=== PATIENT | female | born 1970 | race Hispanic/Latino ===

== ENCOUNTER 2019-08-10 00:48 | Emergency (ER) | payer SELFPAY ==
[2019-08-10 01:33] LABS: Bacteria/HPF 4+ HPF (None Seen); Bilirubin Negative (Negative); Blood, Urine Negative (Negative); Clarity Clear (Clear); Glucose, Urine (Dipstick) Normal (Negative); Leukocyte 75 Leu/uL (Negative); Nitrite 2+ (Negative); Protein, Urine (Dipstick) Negative (Neg-Trace); RBC/HPF 0-3 HPF (0-3); Squamous Epithelial 0-3 HPF (0-3); Urobilinogen Normal mg/dL (Less than 2)
[2019-08-10 01:36] LABS: #Eosinphils 0.5 thou/uL (0.0-0.7); #Lymphocytes 3.2 thou/uL (1.20-3.40); #Monocytes 0.6 thou/uL (0.11-0.59); #Neutrophils 5.2 thou/uL (1.40-6.50); %Basophils 0.3 % (0.0-1.0); %Eosinophils 5.1 % (0.0-10.0); %Monocytes 5.8 % (0.0-10.0); %Neutrophils 54.8 % (42.0-75.0); Hemoglobin 12.9 g/dL (12.0-16.0); Mean Corpuscular HGB CONC 33.6 g/dL (32.0-36.0); Mean Corpuscular Hemoglobin 31.8 pg (27.0-31.0); Mean Corpuscular Volume 94.8 fL (78.0-98.0); Mean Platelet Volume 9.7 fL (7.4-10.4); Platelet Count 202 thou/uL (130-400); RBC Distribution Width 11.3 % (11.5-14.5); Red Blood Cell (RBC) Count 4.05 mill/uL (4.20-5.40); White Blood Cell (WBC) Count 9.4 thou/uL (4.8-10.8)
[2019-08-10 01:54] LABS: ALT (SGPT) 20 U/L (8-55); AST (SGOT) 32 U/L (5-34); Albumin 4.2 g/dL (3.5-5.0); Alkaline Phosphatase 128 U/L (40-110); Anion Gap 12 mmol/L (10-20); BUN (Urea Nitrogen) 8 mg/dL (7.0-18.7); Bilirubin, Total 0.3 mg/dL (0.2-1.2); Calc. Creatinine Clearance 0 mL/min (70-130); Calcium 9.2 mg/dL (7.8-10.44); Carbon Dioxide 28 mmol/L (22-29); Chloride 107 mmol/L (98-107); Estimated GFR-MDRD 85; Globulin 3.5 g/dL (2.4-3.5); Glucose 172 mg/dL (70-105); Potassium 3.5 mmol/L (3.5-5.1); Protein, Total 7.7 g/dL (6.0-8.3); Sodium 143 mmol/L (136-145)
[2019-08-10] MEDS ORDERED: Morphine 10 MG/ML VIAL ONE (02:16)
[2019-08-10] MEDS ORDERED: cefTRIAXone\\ROCEPHIN 1 GM VIAL ONE (02:17)
[2019-08-10] MEDS ORDERED: Ondansetron ODT 8 MG TAB ONE (02:17)
[2019-08-10] MEDS ORDERED: Lidocaine 1% (PF) 30 ML VIAL ONE (02:17)
== END 2019-08-10 02:43 | disposition home or self-care (01) ==
LOC: ERS 00:48
DX: N12 Tubulo-interstitial nephritis, not specified as acute or chronic (principal); G43.909 Migraine, unspecified, not intractable, without status migrainosus
CPT/HCPCS: 36415; 80053; 81003; 81015; 85025; 87077; 87086; 87186; 96372; 99284; J0696; J2001; J2270

== ENCOUNTER 2019-11-13 09:45 | Emergency (ER) | payer SELFPAY ==
[~2019-11-13 09:45] MED LIST: Iopamidol 370 76% 100 ML VIAL ONE
[2019-11-13] MEDS ORDERED: Ketorolac Tromethamine 30 MG/ML VIAL ONE (10:24)
[2019-11-13] MEDS ORDERED: Morphine 4 MG/ML VIAL ONE ×2 (10:24→12:49)
[2019-11-13 10:55] LABS: #Eosinphils 0.4 thou/uL (0.0-0.7); #Lymphocytes 4.4 thou/uL (1.20-3.40); #Monocytes 1.1 thou/uL (0.11-0.59); #Neutrophils 8.3 thou/uL (1.40-6.50); %Basophils 0.3 % (0.0-1.0); %Eosinophils 3.1 % (0.0-10.0); %Monocytes 7.8 % (0.0-10.0); %Neutrophils 57.9 % (42.0-75.0); Hemoglobin 13.7 g/dL (12.0-16.0); Mean Corpuscular HGB CONC 33.5 g/dL (32.0-36.0); Mean Corpuscular Hemoglobin 30.6 pg (27.0-31.0); Mean Corpuscular Volume 91.5 fL (78.0-98.0); Mean Platelet Volume 10.3 fL (7.4-10.4); Platelet Count 190 thou/uL (130-400); RBC Distribution Width 10.8 % (11.5-14.5); Red Blood Cell (RBC) Count 4.46 mill/uL (4.20-5.40); White Blood Cell (WBC) Count 14.3 thou/uL (4.8-10.8)
[2019-11-13 11:06] LABS: ALT (SGPT) 33 U/L (8-55); AST (SGOT) 41 U/L (5-34); Albumin 4.2 g/dL (3.5-5.0); Alkaline Phosphatase 147 U/L (40-110); Anion Gap 16 mmol/L (10-20); BUN (Urea Nitrogen) 6 mg/dL (7.0-18.7); Bilirubin, Total 0.6 mg/dL (0.2-1.2); Calc. Creatinine Clearance 0 mL/min (70-130); Calcium 9.3 mg/dL (7.8-10.44); Carbon Dioxide 25 mmol/L (22-29); Chloride 102 mmol/L (98-107); Estimated GFR-MDRD Greater than 90; Globulin 3.3 g/dL (2.4-3.5); Glucose 178 mg/dL (70-105); Potassium 3.8 mmol/L (3.5-5.1); Protein, Total 7.5 g/dL (6.0-8.3); Sodium 139 mmol/L (136-145)
--- NOTE | 2019-11-13 12:05 | CT ---
CT ORBITS WITH IV CONTRAST: Date: 11/13/2019 HISTORY: Right eye pain and swelling. FINDINGS: There is soft tissue swelling and induration of the fat in the right periorbital region. No loculated fluid collection is seen to suggest abscess formation. No proptosis noted. No retrobulbar mass is id entified. The donovan of the bony orbits are intact bilaterally. The visualized paranasal sinuses and m astoid air cells are well aerated. IMPRESSION: Right periorbital cellulitis. No definite evidence of abscess formation. POS: [facility]
== END 2019-11-13 13:02 | disposition home or self-care (01) ==
LOC: ERS 09:45
DX: L03.213 Periorbital cellulitis (principal)
CPT/HCPCS: 36415; 70481; 80053; 85025; 87040; 96361; 96374; 96375; 96376; J1885; J2270; Q9967

== ENCOUNTER 2019-11-14 18:23 | Emergency (ER) | payer SELFPAY ==
[2019-11-14 19:33] LABS: #Eosinphils 0.3 thou/uL (0.0-0.7); #Lymphocytes 2.6 thou/uL (1.20-3.40); #Neutrophils 9.9 thou/uL (1.40-6.50); %Basophils 0.3 % (0.0-1.0); %Eosinophils 1.9 % (0.0-10.0); %Lymphocytes 18.4 % (21.0-51.0); %Monocytes 7.4 % (0.0-10.0); Mean Corpuscular Hemoglobin 30.7 pg (27.0-31.0); Mean Corpuscular Volume 90.6 fL (78.0-98.0); Mean Platelet Volume 9.7 fL (7.4-10.4); Platelet Count 167 thou/uL (130-400); RBC Distribution Width 10.8 % (11.5-14.5); Red Blood Cell (RBC) Count 4.24 mill/uL (4.20-5.40); White Blood Cell (WBC) Count 13.8 thou/uL (4.8-10.8)
[2019-11-14] MEDS ORDERED: Fentanyl 100 MCG/2 ML VIAL ONE (19:45)
[2019-11-14] MEDS ORDERED: Piperacillin/Tazobactam 3.375 GM VIAL ONE (19:45)
[2019-11-14 19:56] LABS: ALT (SGPT) 28 U/L (8-55); AST (SGOT) 38 U/L (5-34); Albumin 3.8 g/dL (3.5-5.0); Alkaline Phosphatase 136 U/L (40-110); Anion Gap 14 mmol/L (10-20); BUN (Urea Nitrogen) 4 mg/dL (7.0-18.7); Bilirubin, Total 0.6 mg/dL (0.2-1.2); Calc. Creatinine Clearance 0 mL/min (70-130); Calcium 9.1 mg/dL (7.8-10.44); Carbon Dioxide 24 mmol/L (22-29); Chloride 103 mmol/L (98-107); Estimated GFR-MDRD Greater than 90; Globulin 3.7 g/dL (2.4-3.5); Glucose 236 mg/dL (70-105); Potassium 3.6 mmol/L (3.5-5.1); Protein, Total 7.5 g/dL (6.0-8.3); Sodium 137 mmol/L (136-145)
[2019-11-14] MEDS ORDERED: Clindamycin/D5W 300 MG in Premix Bag 1 BAG IVPB ONE (20:00)
[2019-11-14] MEDS ORDERED: diphenhydrAMINE 50 MG/ML VIAL ONE (20:32)
[2019-11-14] MEDS ORDERED: Morphine 4 MG/ML VIAL ONE (21:18)
== END 2019-11-14 21:59 | disposition home or self-care (01) ==
LOC: ERS 18:23
DX: H05.011 Cellulitis of right orbit (principal); G43.909 Migraine, unspecified, not intractable, without status migrainosus
CPT/HCPCS: 36415; 85025; 96365; 96375; J1200; J2270; J2543; J3010; J3490

== ENCOUNTER 2019-11-16 21:49 | Emergency (ER) | payer SELFPAY ==
[2019-11-17] MEDS ORDERED: Lidocaine 1% w/Epinephrine 1:100K 20 ML VIAL ONE (00:18)
== END 2019-11-17 00:50 | disposition home or self-care (01) ==
LOC: ERS 21:49
DX: L03.211 Cellulitis of face (principal); L02.01 Cutaneous abscess of face; G43.909 Migraine, unspecified, not intractable, without status migrainosus; Z79.899 Other long term (current) drug therapy
CPT/HCPCS: 10060

== ENCOUNTER 2020-05-19 22:06 | Emergency (ER) | payer SELFPAY ==
[2020-05-19] MEDS ORDERED: Lidocaine 1% (PF) 30 ML VIAL ONE (23:00)
[2020-05-19] MEDS ORDERED: traMADol HCl 50 MG TAB ONE (23:06)
== END 2020-05-19 23:45 | disposition home or self-care (01) ==
LOC: ERS 22:06
DX: H60.01 Abscess of right external ear (principal); G43.909 Migraine, unspecified, not intractable, without status migrainosus
CPT/HCPCS: 69000; J2001

== ENCOUNTER 2020-06-28 17:43 | Emergency (ER) | payer SELFPAY ==
[2020-06-28 19:07] LABS: Bilirubin Negative (Negative); Blood, Urine Negative (Negative); Clarity Clear (Clear); Glucose, Urine (Dipstick) Normal (Negative); Ketone, Urine Negative (Negative); Leukocyte 75 Leu/uL (Negative); Nitrite Negative (Negative); Protein, Urine (Dipstick) Negative (Neg-Trace); RBC/HPF 0-3 HPF (0-3); Squamous Epithelial 0-3 HPF (0-3); Urobilinogen Normal mg/dL (Less than 2)
[2020-06-28 19:12] LABS: Specific Gravity, Urine 1.005 (1.002-1.036)
[2020-06-28 19:13] LABS: Bacteria/HPF 1+ HPF (None Seen)
== END 2020-06-28 19:59 | disposition home or self-care (01) ==
LOC: ERS 17:43
DX: N39.0 Urinary tract infection, site not specified (principal); G43.909 Migraine, unspecified, not intractable, without status migrainosus; Z85.43 Personal history of malignant neoplasm of ovary; Z85.41 Personal history of malignant neoplasm of cervix uteri
CPT/HCPCS: 81003; 81015; 87086; 99283

== ENCOUNTER 2021-03-20 23:53 | Emergency (ER) | payer SELFPAY ==
[2021-03-21 00:21] LABS: Bacteria/HPF 2+ HPF (None Seen); Bilirubin Negative (Negative); Blood, Urine Trace (Negative); Clarity Turbid (Clear); Glucose, Urine (Dipstick) Normal (Negative); Ketone, Urine Negative (Negative); Leukocyte 500 Leu/uL (Negative); Nitrite 2+ (Negative); Protein, Urine (Dipstick) Negative (Neg-Trace); Specific Gravity, Urine 1.008 (1.002-1.036); Squamous Epithelial 0-3 HPF (0-3); Urobilinogen Normal mg/dL (Less than 2); WBC/HPF Greater than 50 HPF (0-3)
== END 2021-03-21 00:40 | disposition home or self-care (01) ==
LOC: ERS 23:53
DX: N39.0 Urinary tract infection, site not specified (principal); G43.909 Migraine, unspecified, not intractable, without status migrainosus
CPT/HCPCS: 81003; 81015; 99284

== ENCOUNTER 2023-05-28 15:43 | Emergency (ER) | payer BC, SELFPAY ==
[2023-05-28 17:09] LABS: Bacteria/HPF 2+ HPF (None Seen); Bilirubin Negative (Negative); Blood, Urine Negative (Negative); CAUTI Indications for Culture Dysuria,urgency,freq; Clarity Clear (Clear); Glucose, Urine (Dipstick) Normal (Negative); Ketone, Urine Negative (Negative); Leukocyte 250 Leu/uL (Negative); Nitrite Negative (Negative); Protein, Urine (Dipstick) Negative (Neg-Trace); RBC/HPF 0-3 HPF (0-3); Specific Gravity, Urine 1.005 (1.002-1.036); Squamous Epithelial 0-3 HPF (0-3); Urobilinogen Normal mg/dL (Less than 2)
[2023-05-28 17:10] LABS: Pregnancy Test - Urine (BHCG) Negative (Negative); Pregu Control Background? CLEAR/WHITE (CLR/WHITE); Pregu Control Bar Appear? YES (CONTROL BAR); Specific Gravity 1.005 (1.002-1.036)
[2023-05-28 17:12] LABS: Urine Culture Reflex Yes Yes
[2023-05-28] MEDS ORDERED: Cephalexin 250 MG CAP ONE (17:26)
== END 2023-05-28 17:33 | disposition home or self-care (01) ==
LOC: ERS 15:43
DX: N39.0 Urinary tract infection, site not specified (principal)
CPT/HCPCS: 81001; 81025; 87077; 87086; 87186; 99284